=== PATIENT | female | born 1945 | race Caucasian/White ===

== ENCOUNTER 2016-11-27 12:45 | Outpatient (CLI) | payer MEDICARE, OTHER ==
--- NOTE | 2016-11-27 21:26 | RAD ---
RIGHT KNEE FOUR VIEWS 11/27/16 No fracture was seen. Degenerative changes are present consisting of lateral joint space narrowing a nd osteophytes. There was no area of bony destruction. If any joint fluid is present, it is minimal. IMPRESSION: Degenerative changes, most prominent in the lateral compartment. POS: HOME
== END 2016-11-27 12:46 | disposition home or self-care (01) ==
LOC: BURRAD 12:45
PROVIDERS: ATTEND Family Medicine
DX: M25.561 Pain in right knee (principal)

== ENCOUNTER 2021-02-12 16:00 | Emergency (ER) | payer MEDICARE, OTHER ==
[~2021-02-12 16:00] MED LIST: Iopamidol 370 76% 100 ML VIAL ONE
[2021-02-12] MEDS ORDERED: Adenosine 6 MG/2 ML VIAL ONE (16:04)
[2021-02-12] MEDS ORDERED: Midazolam HCl 2 mg/2 ml Vial ONE (16:09)
[2021-02-12] MEDS ORDERED: Fentanyl 100 MCG/2 ML VIAL ONE (16:09)
[2021-02-12 16:22] LABS: #Basophils 0.1 thou/uL (0.0-0.2); #Eosinphils 0.1 thou/uL (0.0-0.7); #Lymphocytes 0.9 thou/uL (1.20-3.40); #Monocytes 0.9 thou/uL (0.11-0.59); #Neutrophils 13.3 thou/uL (1.40-6.50); %Basophils 0.6 % (0.0-1.0); %Eosinophils 0.5 % (0.0-10.0); %Monocytes 6.1 % (0.0-10.0); %Neutrophils 86.8 % (42.0-75.0); Hemoglobin 12.7 g/dL (12.0-16.0); Mean Corpuscular HGB CONC 31.6 g/dL (32.0-36.0); Mean Corpuscular Hemoglobin 27.2 pg (27.0-31.0); Mean Corpuscular Volume 85.9 fL (78.0-98.0); Mean Platelet Volume 8.6 fL (7.4-10.4); Platelet Count 353 thou/uL (130-400); RBC Distribution Width 17.3 % (11.5-14.5); Red Blood Cell (RBC) Count 4.66 mill/uL (4.20-5.40); White Blood Cell (WBC) Count 15.3 thou/uL (4.8-10.8)
[2021-02-12 16:41] LABS: ALT (SGPT) 27 U/L (8-55); AST (SGOT) 22 U/L (5-34); Alkaline Phosphatase 552 U/L (40-110); Anion Gap 21 mmol/L (10-20); BUN (Urea Nitrogen) 40 mg/dL (9.8-20.1); Bilirubin, Total 1.1 mg/dL (0.2-1.2); Calc. Creatinine Clearance 0 mL/min (70-130); Calcium 9.4 mg/dL (7.8-10.44); Carbon Dioxide 27 mmol/L (23-31); Chloride 99 mmol/L (98-107); Globulin 2.5 g/dL (2.4-3.5); Glucose 239 mg/dL (83-110); Protein, Total 5.5 g/dL (5.8-8.1); Sodium 142 mmol/L (136-145)
[2021-02-12] MEDS ORDERED: Sodium Chloride 0.9% 100 ML ONE (16:55)
[2021-02-12] MEDS ORDERED: Cefepime 2 GM VIAL ONE (16:55)
[2021-02-12 17:55] LABS: Bilirubin Negative (Negative); Blood, Urine Negative (Negative); Clarity Slightly Cloudy (Clear); Glucose, Urine (Dipstick) Negative (Negative); Ketone, Urine Negative (Negative); Leukocyte Small (Negative); Nitrite Negative (Negative); Protein, Urine (Dipstick) 30 mg/dL (Neg-Trace); Specific Gravity, Urine 1.015 (1.005-1.030)
[2021-02-12 18:01] LABS: Squamous Epithelial 0-3 HPF (0-3)
[2021-02-12 18:02] LABS: Bacteria/HPF 2+ HPF (None Seen); Oval Fat Bodies/HPF Rare HPF (None Seen)
[2021-02-12 18:03] LABS: RBC/HPF 0-3 HPF (0-3)
[2021-02-12 18:49] LABS: SARS-CoV-2 NAA Rapid Test Not Detected (NotDetected)
== END 2021-02-12 18:15 | disposition short-term general hospital (02) ==
LOC: BURERS 16:00
DX: A41.9 Sepsis, unspecified organism (principal); J18.9 Pneumonia, unspecified organism; Z20.822 Contact with and (suspected) exposure to COVID-19; Z87.891 Personal history of nicotine dependence
CPT/HCPCS: 71045; 71275; 80053; 83605; 83880; 84484; 85025; 85379; 87040; 93005; U0002; 36415; 51701; 81003; 81015; 96365; 96367; 96368; 96375; J0153; J0692; J1956; J2250; J3010; J3370; J3490; Q9967